=== PATIENT | male | born 1965 | race Caucasian/White ===

== ENCOUNTER 2020-05-15 13:25 | Outpatient (CLI) | payer MEDICARE, SELFPAY ==
--- NOTE | ~2020-05-15 | XR_ITS ---
EXAMINATION: XR chest 2V DATE: 05/15/2020 13:59 INDICATION: Personal history of nicotine dependence. TECHNIQUE: Frontal and lateral views of the chest were obtained. COMPARISON: Chest 2 views 04/18/2017, CT abdomen and pelvis 02/21/2017, chest CT 01/01/2013 FINDINGS: There is a 7 mm nodule in left lower lobe. No pleural effusion or pneumothorax. The heart s ize is normal. IMPRESSION: 1. Chronic 7 mm left lower lobe pulmonary nodule, likely benign. Reviewed, dictated and finalized at location A. RNATIONAL GUEST COORDINATOR
[2020-05-15 19:02] LABS: Add Urine Microscopic? YES; Appearance Urine Clear (Clear); Bilirubin Urine Negative (Negative); Blood Urine Negative (Negative); Color Urine Yellow (Yellow); Glucose Urine UA Negative (Negative); Ketones Urine Trace mg/dL (Negative); Leukocyte Esterase Ur Trace LEU/UL (Negative); Mucus Urine Moderate /lpf; Nitrate Urine Negative (Negative); Protein Urine 1+ mg/dL (Negative); Specific Grav Ur 1.024 (1.001-1.035); Squamous Epithelial Cell Urine Rare /hpf (Few); WBC Urine 0-3 /hpf
[2020-05-15 19:10] LABS: Basophils Absolute Auto 0.1 K/mm3 (0.0-0.1); Basophils Percent Auto 0.9 % (0.2-1.2); Eosinophils Absolute Auto 0.2 K/mm3 (0-0.3); Eosinophils Percent Auto 1.9 % (0-4.4); Hematocrit 51.2 % (42.0-52.0); Hemoglobin 17.4 g/dL (14.0-18.0); Immature Granulocyte Absolute 0.07 K/mm3 (0.00-0.031); Immature Granulocyte Percent A 0.7 % (0-0.5); Lymphocytes Absolute Auto 1.85 K/mm3 (0.9-3.2); Lymphocytes Percent Auto 18.9 % (18.3-44.2); Mean Corpuscular Hemoglobin 30.6 pg (26-34); Monocytes Absolute Auto 0.6 K/mm3 (0.1-0.6); Monocytes Percent Auto 6.3 % (2.6-8.5); Neutrophils Percent Auto 71.3 % (45.5-73.1); Platelet Count Result 242 k/mm3 (150-375); Red Blood Count 5.69 M/mm3 (4.6-6.20); Red Cell Distribution Width 13.8 % (11.5-14.5); White Blood Count 9.8 K/mm3 (4.5-10.0)
[2020-05-15 19:35] LABS: Alanine Aminotransferase 44 U/L (4-50); Albumin Level 4.4 g/dL (3.5-5.1); Alkaline Phosphatase 101 U/L (38-126); Anion Gap 7 mmol/L (8-16); Aspartate Amino Transferase 38 U/L (17-59); Bilirubin,Total 0.8 mg/dL (0.2-1.3); Blood Urea Nitrogen 15 mg/dL (9-20); CRP < 0.5 mg/dL (<1.0); Calcium 9.8 mg/dL (8.4-10.2); Carbon Dioxide 26 mmol/L (22-30); Chloride 105 mmol/L (98-107); Cholesterol 254 mg/dL (0-200); Estimated Glomerular Filt Rate > 60; Glucose 103 mg/dL (75-110); HDL Direct 49 mg/dL; Potassium 4.5 mmol/L (3.4-5.0); Sodium 138 mmol/L (137-145); Triglycerides 282 mg/dL (<150)
[2020-05-15 19:43] LABS: LDL Cholesterol Direct 193 mg/dL
[2020-05-15 19:46] LABS: Free T4 Free Thyroxine 1.24 ng/mL (0.78-2.19); Vitamin D 25 Hydroxy 21.8 ng/mL
[2020-05-15 20:01] LABS: Prostate Specific Antigen 2.8 ng/mL (< OR = 4.0)
[2020-05-15 20:38] LABS: Folic Acid 9.1 ng/mL (2.76->20)
[2020-05-19 07:14] LABS: Triiodothyronine T3 Free 3.5 pg/mL (2.3-4.2)
[2020-05-19 11:01] LABS: T3 Reverse 18 ng/dL (8-25)
[2020-05-20 07:53] LABS: Testosterone Free 79.3 pg/mL (35.0-155.0); Testosterone Total 499 ng/dL (250-1100)
== END 2020-05-15 13:26 | disposition home or self-care (01) ==
PROVIDERS: PCP Family Medicine; Visit Provider Family Medicine
DX: Z12.5 Encounter for screening for malignant neoplasm of prostate (principal); R92.8 Other abnormal and inconclusive findings on diagnostic imaging of breast; Z87.891 Personal history of nicotine dependence; J44.9 Chronic obstructive pulmonary disease, unspecified; Z51.81 Encounter for therapeutic drug level monitoring; Z79.899 Other long term (current) drug therapy; F51.04 Psychophysiologic insomnia; G47.19 Other hypersomnia; R06.00 Dyspnea, unspecified; Z82.41 Family history of sudden cardiac death; Z82.62 Family history of osteoporosis; I10 Essential (primary) hypertension
CPT/HCPCS: 36415; 71046; 80053; 80061; 81001; 82306; 82607; 82746; 84153; 84402; 84403; 84439; 84443; 84481; 84482; 85025; 86140; G0103

== ENCOUNTER 2021-01-25 08:34 | Outpatient (CLI) | payer MEDICARE, SELFPAY ==
--- NOTE | ~2021-01-25 | XR_ITS ---
EXAMINATION: XR knee RT min 4V DATE: 01/25/2021 09:21 INDICATION: Nontraumatic right knee pain TECHNIQUE: Anteroposterior, 2 oblique and crosstable lateral views of the right knee were obtained COMPARISON: None. FINDINGS: Alignment is normal. No fracture. Joint spaces appear normal on nonweightbearing imaging. No joint e ffusion/layering lipohemarthrosis. Scattered atherosclerotic calcific lesion along the arteries in th e proximal right calf. Soft tissues are unremarkable. IMPRESSION: 1. No right knee joint effusion or acute osseous abnormality. Reviewed, dictated and finalized at location A.
--- NOTE | ~2021-01-25 | XR_ITS ---
XR abdomen obstructive series DATE: 01/25/2021 09:21 INDICATION: Gastroenteritis, colitis TECHNIQUE: Supine and upright AP views COMPARISON: 03/02/[address] abdomen pelvis FINDINGS: There is no evidence of bowel obstruction or intraperitoneal free air. The liver and spleen appear prominent. No other visceromegaly is detected. The psoas shadows are intact. The lung bases are clear. Heart size is normal. Included skeletal structures are unremarkable. IMPRESSION: Liver and spleen prominent size No bowel obstruction or free air Reviewed, dictated and finalized at Location A. Reviewed, dictated and finalized at location B.
[2021-01-25 21:03] LABS: Cholesterol 239 mg/dL (0-200); HDL Direct 46 mg/dL; Triglycerides 299 mg/dL (<150)
[2021-01-25 21:14] LABS: LDL Cholesterol Direct 161 mg/dL
[2021-01-25 21:35] LABS: Vitamin D 25 Hydroxy < 12.8 ng/mL
== END 2021-01-25 08:35 | disposition home or self-care (01) ==
PROVIDERS: PCP Family Medicine; Visit Provider Family Medicine
DX: E78.5 Hyperlipidemia, unspecified (principal); R79.89 Other specified abnormal findings of blood chemistry; R31.29 Other microscopic hematuria; Z82.41 Family history of sudden cardiac death; F51.04 Psychophysiologic insomnia; R06.00 Dyspnea, unspecified; G89.29 Other chronic pain; Z87.891 Personal history of nicotine dependence; F41.9 Anxiety disorder, unspecified; I10 Essential (primary) hypertension; J45.909 Unspecified asthma, uncomplicated; J44.9 Chronic obstructive pulmonary disease, unspecified; Z86.69 Personal history of other diseases of the nervous system and sense organs; F32.9 Major depressive disorder, single episode, unspecified; E55.9 Vitamin D deficiency, unspecified
CPT/HCPCS: 36415; 73564; 74019; 80061; 82306

== ENCOUNTER 2021-02-03 10:54 | Outpatient (CLI) | payer MEDICARE, SELFPAY ==
--- NOTE | ~2021-02-03 | MR_ITS ---
EXAMINATION: MR knee RT wo con DATE: 02/03/2021 11:42 INDICATION: Right knee pain. TECHNIQUE: Magnetic resonance imaging (MRI) of the right knee was performed without intravenous contr ast. Sequences included axial PD-weighted FS FSE, coronal PD-weighted FSE and PD-weighted FS FSE, sag ittal PD-weighted FSE, and sagittal T2-weighted FS FSE. COMPARISON: Right knee radiographs 01/25/2021, right knee MRI 09/26/2016 FINDINGS: Medial compartment: There is a complex tear of medial meniscus involving the body and posterior horn. There is shallow pa rtial-thickness cartilage loss of tibial condyle. There is deep partial thickness cartilage loss of f emoral condyle involving the central articular surface. Lateral compartment: Lateral meniscus is normal. There is shallow partial-thickness cartilage loss of tibial condyle media lly. Femoral cartilage is normal. Patellofemoral compartment: There is deep partial thickness cartilage fissuring of patellar lateral facet. There is shallow parti al-thickness cartilage loss of patellar medial facet. There is cartilage surface irregularity of troc hlea. Ligaments and tendons: The anterior and posterior cruciate ligaments are normal. Medial collateral ligament and lateral tony ateral ligament complex are intact. There is mild patellar tendinopathy. Fluid: There is a small knee joint effusion. There is trace fluid in a Ha's cyst. IMPRESSION: 1. Moderate chondrosis of medial and patellofemoral compartments and mild chondrosis of lateral carmen rtment. 2. Tear of medial meniscus. 3. Small knee joint effusion. Reviewed, dictated and finalized at location A. IMPRESSION: 1. Moderate chondrosis of medial and patellofemoral compartments and mild chond rosis of lateral compartment. 2. Tear of medial meniscus. 3. Small knee joint effusion.
== END 2021-02-03 10:55 | disposition home or self-care (01) ==
LOC: ANHIMG 10:58
PROVIDERS: PCP Family Medicine; Visit Provider Family Medicine
DX: M25.561 Pain in right knee (principal); M22.2X1 Patellofemoral disorders, right knee; S83.241A Other tear of medial meniscus, current injury, right knee, initial encounter; M25.461 Effusion, right knee
CPT/HCPCS: 73721

== ENCOUNTER 2021-06-19 13:17 | Outpatient (CLI) | payer MEDICARE, SELFPAY ==
--- NOTE | ~2021-06-19 | XR_ITS ---
EXAMINATION: XR chest 2V DATE: 06/19/2021 13:25 INDICATION: Chronic shortness of breath. TECHNIQUE: Frontal and lateral views of the chest were obtained. COMPARISON: Chest 2 views 05/15/2020, CT abdomen and pelvis 02/21/2017 FINDINGS: The chest demonstrates clear lungs without pneumonia, pleural effusion, or pneumothorax. Th e heart size is normal. IMPRESSION: 1. No acute cardiopulmonary disease. Reviewed, dictated and finalized at location A. GENERAL CAR SUPERVISOR
== END 2021-06-19 13:18 | disposition home or self-care (01) ==
PROVIDERS: PCP Family Medicine; Visit Provider Family Medicine
DX: J44.9 Chronic obstructive pulmonary disease, unspecified (principal); J45.909 Unspecified asthma, uncomplicated
CPT/HCPCS: 71046

== ENCOUNTER 2021-07-19 01:11 | Day surgery (SDC) | payer MEDICARE, SELFPAY ==
[2021-07-13 10:59] VITALS: BMI 28.6
--- NOTE | 2021-07-13 11:29 | PC.NURSE ---
Report to the Outpatient Waiting Room, entrance under the green pavilion located off [facility], at time __11:00AM on date __07/19/21 . OR Time: __1:00PM . - You and your visitor will be asked a series of questions to screen for COVID 19 for your protection. - A mask is required within the hospital. Preoperative COVID Testing Requirements: No COVID Test needed if: (proof is required; if not received patient will have Rapid Test prior to entry) - Patient has received COVID Vaccine at least 14 days prior to procedure date or - Patient has positive COVID test result within last 90 days of surgery date. COVID Test needed if above criteria is not met If not COVID vaccinated a COVID test must be conducted within 72 hours of surgery and patient is asked to isolate self from time of testing until procedure. You will go to the [facility] for your COVID testing. The [facility] site is located at the corner of [address] [facility]. You will only be called if COVID results are positive and your surgeon may reschedule your elective surgery date. Patients may have clear liquids (water, carbonated beverages, clear teas, apple juice) until 3 hours prior to surgery with a maximum of 20 ounces. - No food from midnight until time of surgery - Infants may have breast milk until 4 hours before surgery, formula 6 hours prior to surgery. - Children will be allowed to drink immediately following surgery. If applicable, please bring a bottle or sippy cup to assist with drinking. Juice, water, soda, and popsicles are readily available. For infants on formula, please bring formula the day of surgery. Pacifiers are allowed. Take the following medications with a SIP of water the morning of surgery: ___AMLODIPINE, BUPROPION, HYDROCODONE, NEBULIZER, LUNG INHALER & NASAL INHALER Medications to discontinue per physician NONE Date to take last dose Please no make-up, nail pashto, hairspray, perfume, deodorant, or body powder the day of surgery. No jewelry (including any body piercings) or valuables the day of surgery, leave them at home. Please take a shower or bath the night before, or the morning of, surgery with an antibacterial soap. Wear comfortable, loose fitting clothing. Children are encouraged to wear pajamas. - Jewelry must be removed prior to entering the operating room. Rings and piercings that are not removed may be cut off. - The hospital will not accept responsibility for valuables. - Please leave all valuables, including medications, at home the day of surgery. If you are going home after surgery, a licensed driver education instructor must drive you home. - NO public transportation without another adult. - We recommend that an adult stay with you for 24 hours following discharge. - We also recommend that you do not drive, make important decision, drink alcoholic beverages, or take any drugs that were not prescribed by your health care provider for at least 24 hours after your discharge time. For Pediatric surgeries, we recommend two adults accompany the child home (only one inside the building at this time). One visitor will be allowed to accompany the patient into the hospital. Patients visitor will be instructed to remain with patient at all times or leave the building. We will allow the visitor to come back to the postoperative area when patient is ready. Follow any additional instructions given to you from your surgeon. Telephone instructions given to __PATIENT and asked if any additional questions and then verbalized understanding. Patient advised to call surgeon office or pre surgery nurse liaison [phone] if any additional questions.
[2021-07-19] VITALS (8 sets, daily range): BP systolic 122–163; BP diastolic 72–98; PULSE 73–97; RESP 14–20; TEMP 36.6–36.9; O2SAT 97–100
--- NOTE | 2021-07-19 07:09 | WPDHPUPDATE1 ---
History and Physical Update Update Date/Time: 07/19/21 07:09 History and Physical has been reviewed, including an updated exam of the patient. There are NO changes in the patient's condition. Risks, benefits, and alternatives have been discussed and questions answered. Patient agrees to proceed with procedure.
[2021-07-19] MEDS: LACTATED RINGERS 1,000 ML 30 ML IV CONT (11:30)
--- NOTE | 2021-07-19 11:31 | WPDANESEPPF ---
Anes - Initial Pre Proc Eval Procedure: Operation Date: 07/19/21 13:00 Proposed Procedures p Right Knee Arthroscopy, Debride Meniscus, Synovectomy, Chondroplasty - Jordy Morelos MD Date/Time: 07/19/21 11:31 Surgeon: Jordy Morelos MD Pre Op Diagnosis: right knee pain,meniscus tear,condromalacia Patient Data Age: 56 Gender: M Height: 1.75 m Weight: 88 kg Allergies Allergy/AdvReac Type Severity Reaction Status Date / Time No Known Allergies Allergy Mild Verified 07/13/21 10:47 Home Medications Medication Instructions Recorded Confirmed Type hydrocodone 7.5 mg-acetaminophen 1 tablet PO Q6H PRN 01/25/21 07/13/21 History 325 mg tablet albuterol sulfate 0.63 mg/3 mL 0.63 mg INHALATION Q4-6H PRN #90 ml 05/04/21 07/13/21 Rx solution for nebulization albuterol sulfate 90 mcg/actuation 1 inh INHALATION Q4H PRN #18 g 06/06/21 07/13/21 Rx aerosol inhaler fluticasone propionate 230 2 puff INHALATION BID #12 g 06/07/21 07/13/21 Rx mcg-salmeterol 21 mcg/actuation HFA inhaler zolpidem 10 mg tablet 10 mg PO .hs PRN #30 tablet 06/12/21 07/13/21 Rx sildenafil 50 mg tablet 50 mg PO DAILY PRN #30 tablet 06/22/21 07/13/21 Rx bupropion HCl 150 mg 24 hr tablet, 150 mg PO QAM #90 tablet 06/29/21 07/13/21 Rx extended release varenicline 1 mg tablet 1 mg PO BID #56 tablet 07/02/21 07/13/21 Rx fexofenadine 60 mg-pseudoephedrine 1 tablet PO Q12H PRN #20 tablet 07/05/21 07/13/21 Rx ER 120 mg tablet,ext.release,12 hr atorvastatin 10 mg tablet 10 mg PO DAILY #90 tablet 07/06/21 07/13/21 Rx amlodipine 10 mg PO QAM 07/13/21 07/13/21 History diclofenac sodium 50 mg PO BID 07/13/21 07/13/21 History fluticasone propionate [Flonase 2 spray INTRANASAL BID 07/13/21 07/13/21 History Allergy Relief] Patient hx anesthesia problems: none Family hx anesthesia problems: none Results Review: All pre-operative results and documents have been reviewed as part of the pre-operative evaluation. [facility] Past Medical History Medical History Anxiety Arthritis Asthma Claustrophobia COPD (chronic obstructive pulmonary disease) Degenerative arthritis of right knee Depression Dizziness H/O migraine Hemorrhoids Hernia Hypertension Perforated sigmoid colon Sleep disorder SOB (shortness of breath) on exertion Urinary frequency Urinary hesitancy Wheezing Surgical History Surgical History H/O knee surgery H/O shoulder surgery History of intestinal surgery History of tonsillectomy Family History Family History Mother Acute myocardial infarction Family history of chronic obstructive pulmonary disease Father Malignant neoplasm of prostate Other Arthritis Asthma Depression HLD (hyperlipidemia) Heart disease Hypertension Social History Social History Smoking packs per day: 3 Smoking cigarettes per day: 60.0 Years smoked: 42 Smoking pack-years: 126.00 Smoking status: Current every day smoker Tobacco type: cigarettes Additional smoking assessment comments: 1/2 PACK/DAY RECENTLY-TRYING TO QUIT Alcohol intake: current Drinks per week: 21 Substance use: former Substance use type: crack/cocaine Other substance usage details: MEDICAL MARIJUANA CURRENTLY, QUIT COCAINE 8-10 YRS AGO Living arrangements: alone Additional occupation/education comments: disabled Gender identity (if verbalized by the patient): Male Spiritual care concerns: No Anes - Eval Final PreProcedure Day of Procedure 07/19/21 11:31 Patient weight: overweight Heart: regular rate and rhythm Lungs: clear to auscultation Airway: Mallampati scale class II and special considerations poor dentition Neurological: alert and oriented Last oral intake: >/= 8 hours ASA classification: III Emergen
--- NOTE | 2021-07-19 11:52 | ECG_ITS ---
Measurements Intervals Childs Rate: 82 P: 51 [place]: 150 QRS: 50 QRSD: 88 T: 83 QT: 356 QTc: 417 Interpretive Statements SINUS RHYTHM LOW VOLTAGE EKG NO PREVIOUS ECG AVAILABLE FOR COMPARISON Electronically Signed On 07-19-2021 18:56:46 CDT by Ivonne Matamoros M.D.
[2021-07-19] MEDS: KETOROLAC 15 MG/ML VIAL (*BKC) IV PUSH (12:00)
[2021-07-19] MEDS: ACETAMINOPHEN 500 MG TABLET 1000 MG PO (12:00)
[2021-07-19] MEDS: MIDAZOLAM HCL (*CRX) 2 MG/2 ML VIAL IV PUSH (12:15)
[2021-07-19] MEDS: ceFAZolin 2 GM/D5W 50 ML 2 GM/50 ML BAG IVPB (12:37)
[2021-07-19] MEDS: BUPIVACAINE/EPINEPHRINE 0.25% 50 ML VIAL 10 ML INFILTRATE (13:23)
[2021-07-19] MEDS: BUPIVACAINE HCL 0.5% PF 30 ML VIAL 10 ML INFILTRATE (13:24)
--- NOTE | 2021-07-19 13:50 | P.OP_ITS ---
Procedure Note - Detailed Date of Procedure 07/19/21 Pre-op Diagnosis right knee pain,meniscus tear,condromalacia Post-op Diagnosis Same Procedure Performed Right knee arthroscopy with debridement, partial medial meniscectomy, synovectomy and chondroplasty of patellofemoral and medial compartments. Surgeon Jordy Morelos MD Anesthesia General Indications 56-year-old gentleman with right knee pain with weight-bearing and daily activity. MRI demonstrates medial meniscus tear and chondromalacia as well synovitis. He has failed conservative treatment cortisone injection, physical therapy, home exercises, bracing and activity modification. Presents now for operative treatment. Findings Right knee complex tear of the posterior horn medial meniscus with meniscal fragments in the medial compartment. Grade 4 chondromalacia of the medial femoral condyle 3 cm anterior to posterior and 2 cm medial to lateral. Grade 4 chondromalacia of the patella ridge articular surface grade 2 chondromalacia femoral trochlea. Grade 1 chondromalacia lateral femoral condyle. Lateral meniscus intact. Extensive synovitis involving the medial and lateral gutters with the medial and lateral plica, anterior fat pad and anterior compartment. ACL intact. Description of Procedure Informed consent given by patient. Operative extremity marked in preoperative holding area. Patient received intravenous antibiotics. Patient brought to operating room and underwent general anesthetic by anesthesia team. Positioned supine on operating room table. Right leg placed into a posterior thigh leg ley. Foot of the table dropped to 90? and left leg padded out of the field. Time-out performed confirming patient, site of surgery and plan. Right knee prepped and draped in usual sterile surgical fashion using ChloraPrep skin solution. Previous knee arthroscopy incisions utilized. Standard arthroscopic portals made by using a 11 blade knife for the anterior lateral portal 1st. Capsule penetrated bluntly. Camera and inflow started. The operative findings noted. Intra-articular visualization used to position the anterior medial portal using 22 gauge spinal needle. A 11 blade knife used for the skin and blunt pene tration of the capsule. 4.7 millimeter arthroscopic shaver introduced and partial medial meniscectomy of the loose and torn portion performed. Edge of meniscus completed with arthroscopic Wand. Arthroscopic Wand used to perform chondroplasty of the patellofemoral articulation and the medial femoral condyle. Shaver reintroduced and an extensive synovectomy performed of the anterior fat pad and extensive synovium as well as medial and lateral plica. Bleeding points coagulated with Wand. Knee inspected, no loose pieces noted. 1 liter of irrigant infused and suction out. Arthroscopic cannulas removed. Skin closed with 4 nylon interrupted suture. Local anesthetic with 0.25% Marcaine. Sterile dressing applied. Patient awoken from anesthesia, extubated and taken to recovery room in stable condition. All sponge needle and instrument counts correct at the end of the case. Estimated Blood Loss 10 Drains No Packing No Pathology None sent Complications None Condition Stable Disposition PACU
[2021-07-19] MEDS: oxyCODONE HCL (*CRX) 5 MG TAB IR PO (14:47)
== END 2021-07-19 15:31 | disposition home or self-care (01) ==
PROVIDERS: PCP Family Medicine; Visit Provider Orthopaedic Surgery
PROC: (CPT 29870; principal; 2021-07-19 13:00)
DX: M22.41 Chondromalacia patellae, right knee (principal); M23.221 Derangement of posterior horn of medial meniscus due to old tear or injury, right knee; M65.861 Other synovitis and tenosynovitis, right lower leg; M25.561 Pain in right knee; J44.9 Chronic obstructive pulmonary disease, unspecified; K46.9 Unspecified abdominal hernia without obstruction or gangrene; G47.9 Sleep disorder, unspecified; F17.210 Nicotine dependence, cigarettes, uncomplicated; M19.90 Unspecified osteoarthritis, unspecified site; F12.90 Cannabis use, unspecified, uncomplicated; Z79.51 Long term (current) use of inhaled steroids; J45.909 Unspecified asthma, uncomplicated; F41.8 Other specified anxiety disorders
CPT/HCPCS: 29876; 29881; 93005; A9270; J0690; J1100; J1885; J2250; J2405; J2704; J3010; J7120

== ENCOUNTER 2021-07-30 13:02 | Outpatient (CLI) | payer MEDICARE, SELFPAY ==
--- NOTE | ~2021-07-30 | XR_ITS ---
EXAMINATION: XR knee RT 3V DATE: 07/30/2021 13:36 INDICATION: Right knee pain TECHNIQUE: Anteroposterior, sunrise and lateral views of the right knee were obtained COMPARISON: 01/25/2021 FINDINGS: Alignment is normal. No fracture. Joint spaces appear normal on nonweightbearing imaging. Tiny nimisha nal osteophytes in all 3 compartments consistent with at least mild osteoarthritis. Heterotopic ossif ication along the medial margin of the patella which could represent sequela of chronic injury to the medial patellofemoral retinaculum There is increased density both at the suprapatellar pouch as well as projecting over Hoffa's fat pad which could represent either small to moderate-sized joint effusi on and/or synovitis. Soft tissues are otherwise unremarkable. IMPRESSION: 1. Small to moderate-sized right knee joint effusion and/or synovitis. No acute osseous abnormality. Reviewed, dictated and finalized at location A.
== END 2021-07-30 13:03 | disposition home or self-care (01) ==
LOC: ANHBWCIMG 13:04
PROVIDERS: PCP Family Medicine; Visit Provider Orthopaedic Surgery
DX: M25.561 Pain in right knee (principal); M25.461 Effusion, right knee
CPT/HCPCS: 73562

== ENCOUNTER 2021-08-29 12:55 | Outpatient (CLI) | payer MEDICARE, SELFPAY ==
[2021-08-29 19:28] LABS: Basophils Percent Auto 0.4 % (0.2-1.2); Eosinophils Absolute Auto 0.2 K/mm3 (0-0.3); Eosinophils Percent Auto 1.6 % (0-4.4); Hematocrit 51.2 % (42.0-52.0); Hemoglobin 16.7 g/dL (14.0-18.0); Immature Granulocyte Absolute 0.05 K/mm3 (0.00-0.031); Immature Granulocyte Percent A 0.5 % (0-0.5); Lymphocytes Absolute Auto 1.59 K/mm3 (0.9-3.2); Mean Corpuscular HGB Conc 32.6 g/dl (32-36); Mean Corpuscular Hemoglobin 30.4 pg (26-34); Mean Corpuscular Volume 93.3 fl (80-100); Mean Platelet Volume 10.4 fl (7.4-10.4); Monocytes Absolute Auto 0.7 K/mm3 (0.1-0.6); Monocytes Percent Auto 7.7 % (2.6-8.5); Neutrophils Absolute Auto 6.8 K/mm3 (1.3-6.7); Neutrophils Percent Auto 72.8 % (45.5-73.1); Platelet Count Result 159 k/mm3 (150-375); Red Blood Count 5.49 M/mm3 (4.6-6.20); Red Cell Distribution Width 13.6 % (11.5-14.5); White Blood Count 9.3 K/mm3 (4.5-10.0)
== END 2021-08-29 12:56 | disposition home or self-care (01) ==
PROVIDERS: PCP Family Medicine; Visit Provider Physician Assistant
DX: J44.9 Chronic obstructive pulmonary disease, unspecified (principal); J45.909 Unspecified asthma, uncomplicated
CPT/HCPCS: 36415; 85025

== ENCOUNTER 2021-10-23 11:24 | Outpatient (CLI) | payer MEDICARE, SELFPAY ==
[2021-10-23 21:31] LABS: Hepatitis B Surface Antigen Negative (Negative)
[2021-10-23 21:39] LABS: HAV RESULT Negative (Negative); Hepatitis B Core IgM Result Negative (Negative)
[2021-10-23 21:56] LABS: Hepatitis C Virus Antibody Reactive (Negative)
[2021-10-27 15:09] LABS: Hepatitis C RNA, Quant PCR <15 IU/mL
== END 2021-10-23 11:25 | disposition home or self-care (01) ==
PROVIDERS: PCP Family Medicine; Visit Provider Family Medicine
DX: B19.20 Unspecified viral hepatitis C without hepatic coma (principal)
CPT/HCPCS: 36415; 80074; 87522

== ENCOUNTER 2022-02-25 12:17 | Outpatient (CLI) | payer MEDICARE, SELFPAY ==
--- NOTE | ~2022-02-25 | XR_ITS ---
XR shoulder RT min 2V DATE: 02/25/2022 13:56 INDICATION: Chronic right shoulder pain, worse over the past 6 months. No known injury. TECHNIQUE: 4 views COMPARISON: None FINDINGS: There is mild glenohumeral osteoarthritis. No fracture or dislocation. No periosteal reaction or bone destruction or abnormal soft tissue calcif ication. Degenerative spurring of the thoracic spine.. IMPRESSION: Mild glenohumeral osteoarthritis Degenerative spurring of the thoracic spine Reviewed, dictated and finalized at location A. SPOOLER
[2022-02-25 19:05] LABS: Alanine Aminotransferase 18 U/L (6-50); Albumin Level 4.7 g/dL (3.5-5.1); Alkaline Phosphatase 89 U/L (38-126); Anion Gap 11 mmol/L (8-16); Aspartate Amino Transferase 27 U/L (17-59); Bilirubin,Total 0.6 mg/dL (0.2-1.3); Blood Urea Nitrogen 11 mg/dL (9-20); Calcium 9.4 mg/dL (8.4-10.2); Carbon Dioxide 25 mmol/L (22-30); Chloride 104 mmol/L (98-107); Cholesterol 296 mg/dL (0-200); Estimated Glomerular Filt Rate > 60; Glucose 77 mg/dL (65-110); HDL Direct 65 mg/dL; Potassium 4.2 mmol/L (3.4-5.0); Sodium 140 mmol/L (137-145); Triglycerides 242 mg/dL (<150)
[2022-02-25 19:08] LABS: Hemoglobin A1C 5.1 % (<5.7)
[2022-02-25 19:18] LABS: LDL Cholesterol Direct 183 mg/dL
[2022-02-25 19:36] LABS: Prostate Specific Antigen 2.9 ng/mL (< OR = 4.0)
[2022-02-25 19:38] LABS: Vitamin D 25 Hydroxy 14.6 ng/mL
[2022-03-04 09:02] LABS: ANA Cascade Screen Positive (Negative)
[2022-03-08 15:20] LABS: Chromatin (Nucleosomal) Ab <1.0; Sm Antibody <1.0; Sm/RNP Antibody <1.0
== END 2022-02-25 12:18 | disposition home or self-care (01) ==
PROVIDERS: PCP Family Medicine; Visit Provider Family Medicine
DX: S49.91XA Unspecified injury of right shoulder and upper arm, initial encounter (principal); X58.XXXA Exposure to other specified factors, initial encounter; F32.9 Major depressive disorder, single episode, unspecified; F41.9 Anxiety disorder, unspecified; G47.9 Sleep disorder, unspecified; I10 Essential (primary) hypertension; J44.9 Chronic obstructive pulmonary disease, unspecified; N52.9 Male erectile dysfunction, unspecified; R79.89 Other specified abnormal findings of blood chemistry; Z72.0 Tobacco use; R63.1 Polydipsia; F90.9 Attention-deficit hyperactivity disorder, unspecified type; Z12.5 Encounter for screening for malignant neoplasm of prostate; E55.9 Vitamin D deficiency, unspecified; M19.011 Primary osteoarthritis, right shoulder
CPT/HCPCS: 36415; 73030; 80053; 80061; 82306; 83036; 84153; 84443; 86038; G0103

== ENCOUNTER 2022-06-11 14:02 | Outpatient (CLI) | payer MEDICARE, SELFPAY ==
--- NOTE | ~2022-06-11 | XR_ITS ---
EXAM: XR foot LT standing 2V, XR foot RT standing 2V DATE: 06/11/2022 14:54 HISTORY: M19.90 - Unspecified osteoarthritis, GENERAL JOINT PAIN . COMPARISON: None available. FINDINGS: Normal mineralization. No fracture or dislocation. No lytic or blastic lesion. Mild loss o f the longitudinal arch bilaterally. Achilles and plantar enthesopathy in the right foot. Mild bilate ral hallux valgus. Moderate joint space narrowing subchondral sclerosis, and possible erosions (gullw ing deformity) in the DIP joint of the left second toe. Other degenerative changes are present in the feet, typical of mild osteoarthritis, most notably in the bilateral first interphalangeal joints and MTP joints No erosion or periosteal change. Soft tissues within normal limits. IMPRESSION: Mild bilateral hallux valgus and pes planus. Moderate arthritic changes in the left secon d DIP joint may represent osteoarthritis, post traumatic arthropathy, or psoriatic arthritis, in a ba ckground of more typical of mild polyarticular osteoarthritic changes. Reviewed, dictated and finalized at location K. ETING INFORMATION ANALYST IMPRESSION: Mild bilateral hallux valgus and pes planus. Moderate arthritic césar nges in the left second DIP joint may represent osteoarthritis, post traumatic arthropathy, or psoriatic arthritis, in a background of more typical of mild po lyarticular osteoarthritic changes.
--- NOTE | ~2022-06-11 | XR_ITS ---
XR sacroiliac joints min 3V 06/11/2022 14:54 Indication: Lower lumbar spondylosis Procedure: 3 views sacroiliac joints Comparison: No prior studies for comparison. Findings: Sacroiliac joints are symmetric. No significant degenerative change, ankylosis or erosive c hange. Sacral foramen are symmetric. Mild symmetric osteoarthritis of the hips. Impression: 1: No significant abnormality of the sacroiliac joints. Reviewed, dictated and finalized at location L. RT FURNACE HELPER Impression: 1: No significant abnormality of the sacroiliac joints.
--- NOTE | ~2022-06-11 | XR_ITS ---
Bilateral Hands Technique: Bilateral PA, oblique, and lateral views, and ball-catcher's view were obtained. Clinical History: Osteoarthritis Findings: No acute fracture or dislocation is seen. Osseous alignment is anatomic. Joint spaces are p reserved. Soft tissues are unremarkable. Impression: Unremarkable bilateral hand radiographs. Reviewed, dictated and finalized at location . ANY MINER BLASTING Impression: Unremarkable bilateral hand radiographs.
[2022-06-11 17:00] LABS: Rheumatoid Factor 12.6 IU/ML (<12)
[2022-06-13 21:00] LABS: Anti Cyclic Citrullinated Pept <16 Units (<20)
== END 2022-06-11 14:03 | disposition home or self-care (01) ==
PROVIDERS: PCP Family Medicine; Visit Provider Internal Medicine
DX: M19.90 Unspecified osteoarthritis, unspecified site (principal); R76.8 Other specified abnormal immunological findings in serum; M47.812 Spondylosis without myelopathy or radiculopathy, cervical region; M47.816 Spondylosis without myelopathy or radiculopathy, lumbar region; M20.12 Hallux valgus (acquired), left foot; M20.11 Hallux valgus (acquired), right foot; M21.42 Flat foot [pes planus] (acquired), left foot; M21.41 Flat foot [pes planus] (acquired), right foot
CPT/HCPCS: 36415; 72202; 73130; 73620; 86200; 86430

== ENCOUNTER → 2022-07-19 10:02 | Outpatient (CLI) | payer MEDICARE, SELFPAY ==
--- NOTE | ~2022-07-19 | MR_ITS ---
EXAMINATION: MR hand RT wo/w con, MR hand LT wo/w con DATE: 07/19/2022 11:28 INDICATION: Worsening bilateral hand pain and limited range of motion, right greater than left TECHNIQUE: 1. Magnetic resonance imaging (MRI) of the left hand was performed without and with 15 mL Multihance intravenous contrast to include the metacarpals and digits. Sequences included axial, sagittal and co vinod T1-weighted FSE and fluid sensitive FSE STIR and postcontrast axial and sagittal T1-weighted FS FSE. 2. Magnetic resonance imaging (MRI) of the right hand was performed without and with 15 mL Multihance intravenous contrast to include the metacarpals and digits and utilizing the same contrast bolus. Se quences included axial, sagittal and coronal T1-weighted FSE and fluid sensitive FSE STIR and postcon trast axial and sagittal T1-weighted FS FSE. COMPARISON: Bilateral hand radiographs dated 06/11/2022 FINDINGS: Left hand: Bone alignment is normal. Normal bone marrow signal with no fracture or pathologic marrow replacing process. Relatively symmetric pattern of mild osteoarthritis at the first carpometacarpal, metacarpophalangeal, first interphalangeal and a few additional distal interphalangeal joints. Mild t hickening and minimal increased signal at the radial ulnar collateral ligament complexes of the secon d metacarpophalangeal joint and to lesser degree at the radial collateral ligament complex at the thi rd and fourth metacarpophalangeal joints. There is mild edema-like marrow signal change at the underl gabriella dorsal/radial side of the head of the second metacarpal. No joint effusion. The remaining collat eral ligament complex are normal. The visualized portion of the flexor and extensor tendons are with no tenosynovitis. Intrinsic musculature of the hand is normal. Right hand: Bone alignment is normal. No fracture or pathologic marrow replacing process. There is T2 hyperintens e enhancing synovitis at the recess of the right second metacarpophalangeal joint. Associated mild th ickening, increased signal and enhancement of the radial and ulnar collateral ligament complexes at t he second metacarpophalangeal joint. More subtle mild increased signal and enhancement at the radial collateral ligament complex of the third metacarpophalangeal joint. No cortical erosions. Mild osteoa rthritis characterized by mild nonuniform joint space narrowing and small marginal osteophytes at the first carpometacarpal, first metacarpophalangeal, first interphalangeal and a few additional distal interphalangeal joints. The remaining collateral ligament complex at the metacarpophalangeal and inte rphalangeal joints are normal. The visualized portions of the flexor and extensor tendons are normal with no tenosynovitis. Intrinsic musculature of the hand is normal. IMPRESSION: 1. Enhancing synovitis at the right second metacarpophalangeal joint consistent with nonspecific arth ritis with inflammatory component. 2. Thickening, mild increased signal and enhancement involving the radial and ulnar collateral ligame nt complex at the bilateral second metacarpophalangeal joints at the radial side of the right third a nd left third and fourth metacarpophalangeal joints. Given the relatively symmetric distribution woul d favor an inflammatory enthesopathy over trauma. Differential would include arthritis, reactive arth ritis, lupus or crystalline arthropathy such as gout. 3. Mild polyarticular osteoarthritis with typical distribution at the bilateral thumbs and a few dist al interphalangeal joints. Reviewed, dictated and finalized at location A. IMPRESSION: 1. Enhancing synovitis at the right second metacarpophalangeal joint consistent with nonspecific arthritis with inflammatory component. 2. Thickening, mil
== END ==
PROVIDERS: Visit Provider Internal Medicine
DX: M19.041 Primary osteoarthritis, right hand (principal); M19.042 Primary osteoarthritis, left hand
CPT/HCPCS: 73220; A9577

== ENCOUNTER 2022-08-02 12:02 | Emergency (ER) | payer MEDICARE, SELFPAY ==
--- NOTE | ~2022-08-02 | XR_ITS ---
XR hand LT min 3V 08/02/2022 12:59 INDICATION: Left hand pain PROCEDURE: 3 views left hand COMPARISON: 06/11/2022 FINDINGS: Fracture, dislocation or subluxation is not identified. Osteopenia. The soft tissues appear within normal limits. No foreign bodies are identified. IMPRESSION: 1: NO ACUTE BONE OR JOINT ABNORMALITY IDENTIFIED. Reviewed, dictated and finalized at location A.
[2022-08-02 12:09] VITALS: BP 141/87; PULSE 98; RESP 20; TEMP 36.6; O2SAT 98
--- NOTE | 2022-08-02 12:46 | ED.GENADULT ---
HPI - General Adult General Chief complaint: Extremity Injury, Upper Stated complaint: left hand injury Time Seen by Provider: 08/02/22 12:35 Source: patient, RN notes reviewed and old records reviewed Mode of arrival: ambulatory Limitations: no limitations History of Present Illness HPI narrative: 57 year old male presents to express care with complaints of pain to his left hand 4 days ago when he was opening a window and rail snapped and he felt a pop to his left hand. Patient voices discomfort to dorsal left hand along tissue of thumb and first metacarpal region with no selling redness or bruising noted, reports increased pain with movement of hand. 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 MD complaint: pain left hand Onset (ago): day(s) (4) Severity scale (1-10): 9 Pain Consistency: constant Exacerbating factors: movement Treatments prior to arrival: other (takes daily pain medication) Related Data Home Medications Medication Instructions Recorded Confirmed diclofenac sodium 50 mg 50 mg PO BID 07/13/21 08/02/22 tablet,delayed release albuterol sulfate 90 mcg/actuation 90 mcg inhalation Q4-6H 08/02/22 08/02/22 aerosol inhaler Allergies Allergy/AdvReac Type Severity Reaction Status Date / Time No Known Allergies Allergy Mild Verified 08/02/22 12:11 Review of Systems Review of Systems: CONSTITUTIONAL: Denies fever, chills, or sweats. EYES: Denies visual changes, redness, or discharge. ENT: Denies rhinorrhea, congestion, sore throat, or otalgia. CARDIOVASCULAR: Denies chest pain, palpitations, or edema. RESPIRATORY: Denies cough or dyspnea. GASTROINTESTINAL: Denies abdominal pain, nausea, vomiting, or diarrhea. GENITOURINARY: Denies dysuria or hematuria. SKIN: Denies rash or itching. MUSCULOSKELETAL: back pain,chronic joint pain, or myalgia, pain to left dorsal hand along thumb and 1st metacarpal area NEUROLOGIC: Denies headache, numbness, or weakness. PSYCHIATRIC: Reports anxiety or depression. All systems reviewed & are unremarkable except as noted in HPI and below PMFSH Past Medical History Medical History STEPHANIE positive Anxiety Arthritis Asthma Claustrophobia COPD (chronic obstructive pulmonary disease) Degenerative arthritis of right knee Degenerative joint disease of cervical and lumbar spine Depression Dizziness Encounter for postoperative care H/O migraine Hemorrhoids Hernia Hypertension Inflammatory arthritis Left hip pain Perforated sigmoid colon Sleep disorder SOB (shortness of breath) on exertion Urinary frequency Urinary hesitancy Wheezing Surgical History Surgical History H/O knee surgery H/O shoulder surgery History of intestinal surgery History of tonsillectomy Family History Family History Mother Acute myocardial infarction Family history of chronic obstructive pulmonary disease Father Malignant neoplasm of prostate Other Arthritis Asthma Depression HLD (hyperlipidemia) Heart disease Hypertension Social History Social History Smoking packs per day: 0.5 Smoking cigarettes per day: 10.0 Years smoked: 42 Smoking pack-years: 21.00 Smoking status: Current every day smoker (0.5 ppd now ) Tobacco type: cigarettes Additional smoking assessment comments: 1/2 PACK/DAY RECENTLY-TRYING TO QUIT Alcohol intake: current Drinks per week: 21 Substance use: former Substance use type: crack/cocaine and opiates Other substance usage details: MEDICAL MARIJUANA CURRENTLY, QUIT COCAINE 8-10 YRS AGO Last use: opiates for pain control Lack of Transportation: YES Lack of Food: Sometimes True Current Housing: I
== END 2022-08-02 13:39 | disposition home or self-care (01) ==
PROVIDERS: Emergency Provider Registered Nurse; PCP Family Medicine
DX: M79.642 Pain in left hand (principal); F17.210 Nicotine dependence, cigarettes, uncomplicated; F12.90 Cannabis use, unspecified, uncomplicated; J44.9 Chronic obstructive pulmonary disease, unspecified; M17.11 Unilateral primary osteoarthritis, right knee; M47.812 Spondylosis without myelopathy or radiculopathy, cervical region; M47.816 Spondylosis without myelopathy or radiculopathy, lumbar region; I10 Essential (primary) hypertension; F41.9 Anxiety disorder, unspecified; F32.A Depression, unspecified
CPT/HCPCS: 73130; 99213; G0463

== ENCOUNTER 2022-09-30 09:20 | Outpatient (CLI) | payer MEDICARE, SELFPAY ==
--- NOTE | 2022-10-06 15:11 | WPDPFTINT ---
PFT Procedure Performed PFT Procedure Performed Spirometry with Pre/Post Bronchodilator Plethysmography (Lung Vol) Diffusing Cap (DLCO) Flow Vol Loop PFT Interpretation DOS: 09/30/2022 REQUESTING: Chantell Whiteside PA-C REASON FOR TESTING: COPD PULMONARY FUNCTION TESTS Results are reliable and reproducible. Spirometry: pre bronchodilator FEV1 is 3.16 L, 87% predicted, normal. Pre bronchodilator FVC is 4.75 L, 102% predicted, normal. FEV1 / FVC ratio is 66%, decreased, consistent with airflow obstruction. After bronchodilator the FEV1 is 3.34 L, 92%, a 6% increase. After bronchodilator the FVC is 4.83 L, 104% predicted, 2% increase. These are not statistically significant increases. Lung volumes: Total lung capacity is 10.59 L, 157% predicted, moderate hyperinflation. Residual volume is 4.68 L, 225%, severe air trapping. RV/TLC is increased 44%. This also is consistent with air trapping. Airway resistance 2.31, 189% predicted, normal. Diffusion: DLCO 27.2, 93% predicted. DLCO / VA is 3.36, 75%, within the normal range. Flow volume loop: There is mild coving of the expiratory limb consistent with airflow obstruction. IMPRESSION: This shows a mild obstructive ventilatory impairment with insignificant response to bronchodilator, moderate air trapping with severe hyperinflation, normal diffusion. Lack of response to bronchodilator should not preclude use if clinically indicated. The patient had a PFT in 2009. The interpretation was Mild obstructive ventilatory defect with acute bronchodilator response.? Normal DLCO. Selma Starkey MD
--- NOTE | 2022-10-06 15:21 | WPDSIXMINUTE ---
Six Minute Walk Procedure Procedure Performed Pulmonary Stress Test (6 min walk) Six Minute Walk Six Minute Walk: DATE OF SERVICE: 09/30/2022 REQUESTING: Chantell Whiteside PA-C REASON FOR TESTING: COPD SIX MINUTE WALK This test was conducted per ATS guidelines. The initial saturation was 98%, and initial heart rate was 72 bpm. The patient walked without stopping, completing 800 ft/ 243.8 m. He walked using a cane. He had shortness of breath.. The saturation at the end of testing was 96%, and the heart rate was 85 beats per minute. IMPRESSION: This is a normal study. The patient did not require supplemental oxygen with exertion. Selma Starkey MD
== END 2022-09-30 09:21 | disposition home or self-care (01) ==
LOC: ANHPFT 09:21
PROVIDERS: PCP Family Medicine; Visit Provider Internal Medicine Critical Care Medicine
DX: J44.9 Chronic obstructive pulmonary disease, unspecified (principal); R94.2 Abnormal results of pulmonary function studies
CPT/HCPCS: 94060; 94618; 94726; 94729

== ENCOUNTER 2022-09-30 10:31 | Outpatient (CLI) | payer MEDICARE, SELFPAY ==
--- NOTE | ~2022-09-30 | CT_ITS ---
CT Scan of the Chest without Contrast: Clinical Indication: Lung cancer screening, smoking history Technique: Contiguous sections were acquired throughout the chest without intravenous contrast. Dose reduction technique was used on this scan by utilizing automated exposure control and iterative recon struction technique. The dose-length product (DLP) was 153.67 mGy-cm. COMPARISON: 01/01/2013 Findings: There is no evidence of any significant mediastinal, hilar or axillary lymphadenopathy. Atherosclerot ic calcifications of the aorta and coronary arteries are present. There is no evidence of pleural or pericardial effusion. 8mm left lower lobe pulmonary nodules present, minimally increased since 2013 (axial image 85). Images through the upper abdomen reveal no abnormalities. Impression: Lung RADS 2: Benign appearance. 12 month follow-up screening CT advised. Reviewed, dictated and finalized at location . Impression: Lung RADS 2: Benign appearance. 12 month follow-up screening CT advised.
== END 2022-09-30 10:32 | disposition home or self-care (01) ==
PROVIDERS: PCP Family Medicine; Visit Provider Physician Assistant
DX: Z12.2 Encounter for screening for malignant neoplasm of respiratory organs (principal); F17.210 Nicotine dependence, cigarettes, uncomplicated
CPT/HCPCS: 71271; 94060; 94618; 94726; 94729

== ENCOUNTER 2022-10-21 10:15 | Outpatient (CLI) | payer MEDICARE, SELFPAY ==
[2022-10-21 18:36] LABS: Hematocrit 51.7 % (42.0-52.0); Hemoglobin 16.8 g/dL (14.0-18.0); Mean Corpuscular HGB Conc 32.5 g/dl (32-36); Mean Corpuscular Hemoglobin 30.8 pg (26-34); Mean Corpuscular Volume 94.7 fl (80-100); Mean Platelet Volume 10.1 fl (7.4-10.4); Platelet Count Result 178 k/mm3 (150-375); Red Blood Count 5.46 M/mm3 (4.6-6.20); Red Cell Distribution Width 13.5 % (11.5-14.5); White Blood Count 8.5 K/mm3 (4.5-10.0)
[2022-10-21 19:23] LABS: Alanine Aminotransferase 18 U/L (6-50); Albumin Level 4.5 g/dL (3.5-5.1); Alkaline Phosphatase 95 U/L (38-126); Anion Gap 3 mmol/L (8-16); Aspartate Amino Transferase 47 U/L (17-59); Bilirubin,Total 0.5 mg/dL (0.2-1.3); Blood Urea Nitrogen 18 mg/dL (9-20); Calcium 9.2 mg/dL (8.4-10.2); Carbon Dioxide 27 mmol/L (22-30); Chloride 104 mmol/L (98-107); Cholesterol 238 mg/dL (0-200); Estimated Glomerular Filt Rate > 60; Glucose 71 mg/dL (65-110); HDL Direct 62 mg/dL; Potassium 4.5 mmol/L (3.4-5.0); Sodium 134 mmol/L (137-145); Triglycerides 220 mg/dL (<150)
[2022-10-21 19:34] LABS: LDL Cholesterol Direct 134 mg/dL
== END 2022-10-21 10:16 | disposition home or self-care (01) ==
PROVIDERS: PCP Family Medicine; Visit Provider Family Medicine
DX: B35.1 Tinea unguium (principal); G89.29 Other chronic pain; L84 Corns and callosities; Z79.899 Other long term (current) drug therapy
CPT/HCPCS: 36415; 80053; 80061; 85027

== ENCOUNTER 2023-01-27 12:12 | Outpatient (CLI) | payer MEDICARE, SELFPAY ==
[2023-02-02 14:43] LABS: Amphetamines NEGATIVE ng/mL (<500); Barbiturates NEGATIVE ng/mL (<300); Benzodiazepines NEGATIVE ng/mL (<100); Cocaine Metabolite NEGATIVE ng/mL (<100); Marijuana Metabolite 2600 ng/mL (<5); Methadone Metabolite NEGATIVE ng/mL (<100); Oxidant NEGATIVE mcg/mL (<200); pH 5.5 (4.5-9.0)
== END 2023-01-27 12:13 | disposition home or self-care (01) ==
LOC: ANHBWCLAB 12:13
PROVIDERS: PCP Family Medicine; Visit Provider Family Medicine
DX: M54.10 Radiculopathy, site unspecified (principal); M54.2 Cervicalgia
CPT/HCPCS: 80299

== ENCOUNTER 2023-02-01 11:10 | Outpatient (CLI) | payer MEDICARE, SELFPAY ==
--- NOTE | ~2023-02-01 | MR_ITS ---
MRI of the cervical spine Clinical History: Cervicalgia Technique: Axial T2-weighted and gradient images, and sagittal T1-weighted, T2-weighted, and STIR yudith ges were acquired. Findings: No acute fracture seen. There is minimal grade 1 retrolisthesis at C3 over C4. There is 3 m m anterolisthesis of C4 over C5. No suspicious bone marrow signal abnormality seen. At C2-C3, there is minimal disc bulge. There is mild facet arthropathy bilaterally. No radha central canal stenosis or definite neural foraminal narrowing. At C3-C4, there is degenerative disc narrowing. Disc osteophyte complex results in mild canal stenosi s and cord compression. There is bilateral neural foraminal narrowing with bilateral facet arthropath y. At C4-C5, there is mild disc bulge. No radha spinal canal stenosis or cord compression. There is bila teral neural foraminal narrowing, left worse than right, with bilateral facet arthropathy, left worse than right. At C5-C6, there is disc osteophyte complex. No radha spinal canal stenosis or cord compression. There is bilateral neural foraminal narrowing, right worse than left. At C6-C7, there is mild disc osteophyte complex, without canal stenosis or cord compression. There is bilateral neural foraminal narrowing. No abnormal signal seen in the spinal cord. Paravertebral soft tissues are unremarkable. Impression: Moderate degenerative spondylosis, probably worst at C3-C4. Minimal grade 1 retrolisthesis of C3 over C4. 3 mm anterolisthesis of C4 over C5. Reviewed, dictated and finalized at location M. Impression: Moderate degenerative spondylosis, probably worst at C3-C4. Minimal grade 1 retrolisthesis of C3 over C4. 3 mm anterolisthesis of C4 over C5.
== END 2023-02-01 11:11 | disposition home or self-care (01) ==
PROVIDERS: PCP Family Medicine; Visit Provider Family Medicine
DX: M43.02 Spondylolysis, cervical region (principal); M54.10 Radiculopathy, site unspecified
CPT/HCPCS: 72141

== ENCOUNTER 2023-05-13 12:28 | Outpatient (CLI) | payer MEDICARE, SELFPAY ==
[2023-05-13 13:13] LABS: Ethanol < 10 mg/dL (<10)
[2023-05-13 13:14] LABS: Potassium 4.7 mmol/L (3.4-5.0)
[2023-05-17 17:09] LABS: GGT 21 U/L (3-85)
== END 2023-05-13 12:29 | disposition home or self-care (01) ==
PROVIDERS: PCP Family Medicine; Visit Provider Family Medicine
DX: F10.10 Alcohol abuse, uncomplicated (principal)
CPT/HCPCS: 36415; 80307; 82977; 84132

== ENCOUNTER 2023-08-12 12:32 | Outpatient (CLI) | payer MEDICARE, SELFPAY ==
[2023-08-12 13:01] LABS: Hematocrit 47.3 % (42.0-52.0); Hemoglobin 15.6 g/dL (14.0-18.0); Mean Corpuscular Hemoglobin 30.2 pg (26-34); Mean Corpuscular Volume 91.5 fl (80-100); Mean Platelet Volume 9.1 fl (7.4-10.4); Platelet Count Result 238 k/mm3 (150-375); Red Blood Count 5.17 M/mm3 (4.6-6.20); Red Cell Distribution Width 14.6 % (11.5-14.5); White Blood Count 9.1 K/mm3 (4.5-10.0)
[2023-08-12 13:11] LABS: Alanine Aminotransferase 12 U/L (6-50); Albumin Level 4.7 g/dL (3.5-5.1); Alkaline Phosphatase 94 U/L (38-126); Anion Gap 6 mmol/L (4-12); Aspartate Amino Transferase 19 U/L (17-59); Bilirubin,Total 0.8 mg/dL (0.2-1.3); Blood Urea Nitrogen 9 mg/dL (9-20); Calcium 9.3 mg/dL (8.4-10.2); Carbon Dioxide 25 mmol/L (22-30); Chloride 108 mmol/L (98-107); Estimated Glomerular Filt Rate > 60; Glucose 84 mg/dL (65-110); Potassium 3.7 mmol/L (3.4-5.0); Sodium 139 mmol/L (137-145)
[2023-08-12 13:42] LABS: Prostate Specific Antigen 3.8 ng/mL (< OR = 4.0)
[2023-08-13 22:58] LABS: Amphetamines NEGATIVE ng/mL (<500); Barbiturates NEGATIVE ng/mL (<300); Benzodiazepines NEGATIVE ng/mL (<100); Cocaine Metabolite NEGATIVE ng/mL (<150); Marijuana Metabolite POSITIVE ng/mL (<20); Methadone Metabolite NEGATIVE ng/mL (<100); Opiates POSITIVE ng/mL (<100); Oxidant NEGATIVE mcg/mL (<200); pH 7.3 (4.5-9.0)
== END 2023-08-12 12:33 | disposition home or self-care (01) ==
LOC: ANHLAB 12:37
PROVIDERS: PCP Family Medicine; Visit Provider Family Medicine
DX: Z12.5 Encounter for screening for malignant neoplasm of prostate (principal); B35.1 Tinea unguium; F10.10 Alcohol abuse, uncomplicated; F41.9 Anxiety disorder, unspecified; F98.8 Other specified behavioral and emotional disorders with onset usually occurring in childhood and adolescence; I10 Essential (primary) hypertension; J44.9 Chronic obstructive pulmonary disease, unspecified; J45.909 Unspecified asthma, uncomplicated; M19.90 Unspecified osteoarthritis, unspecified site; M79.643 Pain in unspecified hand; R31.29 Other microscopic hematuria; G89.29 Other chronic pain; Z87.891 Personal history of nicotine dependence
CPT/HCPCS: 36415; 80053; 80307; 84153; 85027; G0103

== ENCOUNTER 2023-10-02 14:15 | Outpatient (CLI) | payer MEDICARE, SELFPAY ==
--- NOTE | ~2023-10-02 | CT_ITS ---
EXAMINATION: CT lung screening DATE: 10/02/2023 14:37 INDICATION: Z87.891 - Personal history of nicotine dependence TECHNIQUE: Computed tomography (CT) of the chest was performed without intravenous contrast. Addition al 3D reconstructions utilizing coronal maximum intensity projection (MIP) were performed. Automated exposure control and iterative reconstruction technique were employed. The dose-length product was 13 1.17 mGy-cm. COMPARISON: 09/30/2022 FINDINGS: Unchanged 8 mm left lower lobe nodule. Small calcified right lower lobe nodule consistent with old gr anulomatous disease. No new or enlarging pulmonary nodules, pneumonia, pulmonary edema or pleural eff usion. Heart size is normal. Atherosclerotic coronary artery calcific a cyst. No pericardial effusion . Thoracic aorta is normal in caliber. No pathologically enlarged thoracic lymphadenopathy. The visua lized upper abdomen is unremarkable. Moderate thoracic spondylosis. IMPRESSION: 1. Lung-RADS category 2: Benign appearance or behavior. Continue annual screening with noncontrast lo w-dose chest CT in 12 months. Reviewed, dictated and finalized at location A. IMPRESSION: 1. Lung-RADS category 2: Benign appearance or behavior. Continue annual screeni ng with noncontrast low-dose chest CT in 12 months.
== END 2023-10-02 14:16 | disposition home or self-care (01) ==
PROVIDERS: PCP Family Medicine; Visit Provider Physician Assistant
DX: Z12.2 Encounter for screening for malignant neoplasm of respiratory organs (principal); Z87.891 Personal history of nicotine dependence
CPT/HCPCS: 71271

== ENCOUNTER 2024-05-26 09:11 | Outpatient (CLI) | payer MEDICARE, SELFPAY ==
[2024-05-26 09:39] LABS: Hematocrit 50.1 % (42.0-52.0); Hemoglobin 16.7 g/dL (14.0-18.0); Mean Corpuscular HGB Conc 33.3 g/dl (32-36); Mean Corpuscular Hemoglobin 30.5 pg (26-34); Mean Corpuscular Volume 91.6 fl (80-100); Mean Platelet Volume 9.6 fl (7.4-10.4); Platelet Count Result 248 k/mm3 (150-375); Red Blood Count 5.47 M/mm3 (4.6-6.20); Red Cell Distribution Width 13.6 % (11.5-14.5); White Blood Count 8.3 K/mm3 (4.5-10.0)
--- OUTSIDE RECORDS SUMMARY | 2024-05-26 09:48 | XMS_ITS | Continuity of Care Document ---
Author Organization [facility] Address [address] [place] [address] [place] [address] Phone Care Team Providers Care Community Board Member Name Role Phone Jose Rutledge MD Unavailable Unavailable Allergies, Adverse Reactions, Alerts Substance Reaction Status Criticality No Known Allergies Active No Inform ation Medications Medication Instructions Dosage Effective Dates (start - stop) Status Comments Norvasc 10 mg tablet take 1 tablet by or al route every day 10 MG - Active Zyban 150 mg tablet,sustained-rele ase take 1 tablet by oral route 2 times every day - Active Procedures Procedure Date PREV VISIT, EST, AGE 40-64 OFFICE/OUTPATIENT VISIT, EST OFFICE/OUTPATIENT VISIT, EST OFFICE/OUTPATIENT VISIT, EST PREV VISIT, EST, AGE 40-64 OFFICE/OUTPATIENT VISIT, EST PREV VISIT, EST, AGE 40-64 OFFICE/OUTPATIENT VISIT, EST Advance Directives Directive Yes / No Effective Date File Name No Information Encounters Encounter Description Practice Location Reason(s) For Visit Diagnoses Date Provider Providers Copied on Encounter [facility], [place], [address] [place], [place], [id number], [place] tel:[phone] [facility], [place] No Information 6 Aamir Garcia. [address] [facility] [place], [address] , [place]. tel:[phone] Referring Provider: Jose Rutledge [address] [facility] [place], [id number]. tel:[phone] PREV VISIT, EST, AGE 40-64 [facility], [place], [address], [place], [place], [address], [place] tel:[phone] [facility] Physical1 (chief complaint) Encounter for general adult medical exam w abnormal findingsEssential (primary) hypertensionChronic pain syndromeGeneralized anxiety disorder 6 Aamir Garcia. [address], [address], [place], [place], [address] , [place]. [phone] Referring Provider: Meek Salomon [address], [place], [place], [id number]. tel:[phone] OFFICE/OUTPA TIENT VISIT, EST [facility], [place], [address], [place], [place], [address], [place] tel:[phone] [facility], [place] back pain (chief complaint) Dietary surveillance and counselingLumbagoLu mbosacral spondylosis without myelopathy 4 Aamir Garcia. [address], [address], [place], [place], [address] , [place]. [phone] Referring Provider: Meek Salomon [address], [place], [place], [address]. tel:[phone] OFFICE/OUTPA TIENT VISIT, EST [facility], [place], [address], [place], [place], [address], [place] tel:[phone] [facility], [place] back pain (chief complaint) Dietary surveillance and counselingAbdominal PainFamily Hx of Cardiovascular DiseaseLumbagoSciat ica Dec-0 4 Aamir Garcia. [address], [address], [place], [place], [address] , [place]. [phone] Referring Provider: Meek Salomon [address], [place], [place], [address]. tel:[phone] PREV VISIT, EST, AGE 40-64 [facility], [place], [address], [place], [place], [address], [place] tel:[phone] [facility] Physical (chief complaint) Dietary surveillance and counselingRoutine Medical ExamAbdominal PainAsthmaOther and unspecified hyperlipidemiaRouti ne Medical Exam 4 Aamir Garcia. [address], [address], [place], [place], [address] , [place]. tel:[phone] Referring Provider: Meek Sal[address], [place], [place], [address]. tel:[phone] PREV VISIT, EST, AGE 40-64 [facility], [place], [facility] [address], [place], [place], [id number], [place] tel:[phone] [facility], [place] Physical (chief complaint) Routine Medical ExamDietary surveillance and counselingRoutine Medical Exam 3 Aamir Garcia. [address], [address], [place], [place], [address] , [place]. tel:[phone] Referring Provider: Meek Salomon [address] [facility] [address], [place], [place], [address]. tel:[phone] OFFICE/OUTPA TIENT VISIT, EST [facility], [place], [address], [place], [place], [address], [place] tel:[phone] [facility], [place] ankle pain (chief complaint) asthma (chief complaint) Dietary surveillance and counselingPain in joint involving ankle and footNondependent alcohol abuse, continuous drinking behaviorAsthma 3 Aamir Verde [address], [address], [place], [place], [address] , [place]. tel:[phone] Referring Provider: Meek Sal[address], [place], [place], [address]. tel:[phone] Family History Family Member Type Diagnosis Age At Onset Sister Problem (finding) Alive and well Father Problem (finding) Cancer, prostate 58 Mother Problem (finding) Stroke 49 Mother Problem (finding) Coronary artery disease 50 Mother Problem (finding) COPD Payers Payer name Insurance type Covered green party ID Authoriza tion(s) No Information Social History Type Description Quantity Date Captured Comments Alcohol Use Details Unknown Caffeine Use Details Unknown Tobacco Use Status Smoking Status No Information Sex Male Chief Complaint And Reason For Visit No Information Plan Of Treatment Date Type Action Status Goal Tobacco cessation counseling completed Goal Tobacco cessation counseling completed Goal Tobacco cessation counseling completed Goal Tobacco cessation counseling completed Referral Ordered: Pain Medicine (related to Chronic pain syndrome) ordered Referral Ordered: Referrals: Pain Medicine. Evaluate and treat ordered Referral Ordered: Referral: Neurosurgery. ordered Referral Ordered: Pain Management (related to Lumbago) ordered Referral Ordered: MRI LUMBAR SPINE W/O DYE ordered Referral Ordered: Referral: Pain Management. ordered Referral Ordered: CT ABDOMEN W/DYE ordered Referral Ordered: ANKLE XRAY, TWO VIEW Right ordered History Of Present Illness Encounter Date Complaint History Of Prese nt Illness Physical1 Pt needs annual physical. Pt has chronic low back pain. Pt c/o sciatica and numnbess. Pt supposes to have surgery by Dr. Ramires but he has to be nicotine free for 3 months before the surgery. Pt was getting pain medication from pain management then Dr. Ramires but Dr. Ramires no longer will prescribe pain meds for him. He is takign 180 norco per month. He just got the last script from [facility] today but he wants me to take over his pain meds. Pt was fired by pain [facility] for using cocaine. Pt told me he underwent rehab and no longer uses any illicit drugs. Pt also wants to quit smoking. Pt has depression and anxiety. Pt wants to try ambien or xanax? Pt denies any suicidal or homicidasl thought. Pt denies any crying spells. He has been doing ok with breathing. He has HTn. Pt is not on any meds. He denies any chest pain or headache Instructions Date Instruction Additional Infor twan Prescribed Activity and Exercise Education Related to Dietary Surveillance and Counseling Prescribed Diet Educ ation/Lifestyle Education Regarding Diet Related to Dietary Surveillance and Counseling Decrease caloric intake Related to Dietary surveillance counseling Dietary counseling Related to Di etary surveillance counseling Decrease caloric intake Related to Dietary surveillance counseling Dietary counseling Related to Di etary surveillance counseling Dietary counseling Related to Di etary surveillance counseling Decrease caloric intake Related to Dietary surveillance counseling Dietary counseling Related to Di etary surveillance counseling Decrease caloric intake Related to Dietary surveillance counseling Decrease caloric intake Related to Dietary surveillance counseling Dietary counseling Related to Di etary surveillance counseling Assessments Type Assessment Date No Information
--- OUTSIDE RECORDS SUMMARY | 2024-05-26 09:48 | XMS_ITS | Clinical Summary ---
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 Gender Identity Not on file Sexual Orientation Not on file Plan of Treatment Health Maintenance Due Date Last Done Comments Hepatitis C Virus (HCV) Screening 1965 TdaP Immunization 1965 Hepatitis B Immunization (1 of 3 - 19+ 3-dose series) 06/14/1986 Colonoscopy 06/14/2012 Colorectal Cancer Screening 06/14/2012 Cologuard 06/14/2017 Immunochemical Fecal Occult Blood 06/14/2017 Zoster Immunization (1 of 2) 06/14/2017 PSA Discussion 06/14/2022 Influenza Immunization (#1) 2023 08/2 07/2021, 03/30/2021, 02/04/2020 SARS-COV-2 Immunization ( season) 2023 04/22/2021, 03/30/2021 Respiratory Syncytial Virus (RSV) Immunization (Adult) (1 - 1-dose 75+ series) 06/14/2042 Pneumococcal Immunization (5 0+ years) Completed 09/17/2021, 02/04/2020 Pneumococcal Immunization Combined Discontinued 09/17/2021, 02/04/2020 Meningococcal Immunization (ACWY) Aged Out No longer eligible based on patient's age to complete this topic Rotavirus Immunization Aged Out No lo nger eligible based on patient's age to complete this topic Insurance MEDICARE C [place]ICAID [place] Care Teams Supervisor Labor Gang Relationship Specialty Start Date End Date Vlad Alejo MD [address] [place] [id number] PCP - General Family Medicine 06/17/23
[2024-05-26 09:50] LABS: Alanine Aminotransferase 16 U/L (6-50); Albumin Level 4.1 g/dL (3.5-5.1); Alkaline Phosphatase 89 U/L (38-126); Anion Gap 7 mmol/L (4-12); Aspartate Amino Transferase 22 U/L (17-59); Bilirubin,Total 0.7 mg/dL (0.2-1.3); Blood Urea Nitrogen 11 mg/dL (9-20); Calcium 8.9 mg/dL (8.4-10.2); Carbon Dioxide 28 mmol/L (22-30); Chloride 102 mmol/L (98-107); Estimated Glomerular Filt Rate > 60; Glucose 103 mg/dL (65-110); Potassium 3.9 mmol/L (3.4-5.0); Sodium 137 mmol/L (137-145)
== END 2024-05-26 09:12 | disposition home or self-care (01) ==
PROVIDERS: PCP Family Medicine; Visit Provider Family Medicine
DX: Z79.899 Other long term (current) drug therapy (principal)
CPT/HCPCS: 36415; 80053; 85027

== ENCOUNTER 2025-01-27 00:23 | Day surgery (SDC) | payer MEDICARE, SELFPAY ==
[2025-01-18 15:16] VITALS: BMI 26.6
--- OUTSIDE RECORDS SUMMARY | 2025-01-27 00:25 | XMS_ITS | Clinical Summary ---
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 Gender Identity Not on file Sexual Orientation Not on file Plan of Treatment Health Maintenance Due Date Last Done Comments Hepatitis C Virus (HCV) Screening 1965 TdaP Immunization 1965 Hepatitis B Immunization (1 of 3 - 19+ 3-dose series) 06/14/1986 Cologuard 06/14/2012 Colonoscopy 06/14/2012 Colorectal Cancer Screening 06/14/2012 Immunochemical Fecal Occult Blood 06/14/2012 Zoster Immunization (1 of 2) 06/14/2017 Medicare Initial AWV [id number] 04/14/2021 PSA Discussion 06/14/2022 Influenza Immunization (#1) 2024 08/2 07/2021, 03/30/2021, 02/04/2020 SARS-COV-2 Immunization ( - 2024- season) 2024 04/22/2021, 03/30/2021 Respiratory Syncytial Virus (RSV) Immunization (Adult) (1 - 1-dose 75+ series) 06/14/2042 Pneumococcal Immunization (5 0+ years) Completed 09/17/2021, 02/04/2020 Pneumococcal Immunization Combined Discontinued 09/17/2021, 02/04/2020 Human Papillomavirus (HPV) Immunization Aged Out No longer eligible based on patient's age to complete this topic Meningococcal Immunization (ACWY) Aged Out No longer eligible based on patient's age to complete this topic Rotavirus Immunization Aged Out No lo nger eligible based on patient's age to complete this topic Insurance MEDICARE C [place] Care Teams Insurance Coordinator Relationship Specialty Start Date End Date Vlad Alejo MD PCP - General Family Medicine 06/17/23
--- OUTSIDE RECORDS SUMMARY | 2025-01-27 00:25 | XMS_ITS ---
Author Organization [facility] Address [address] [place] [address] Phone Care Team Providers Care Crossing Flagman Name Role Phone Vlad Alejo MD Primary Care Provider [phone] [facility] Service Episode Status:Identified (Enrolling) Start date:01/20/2025 Related program episode:[facility] (Active) Continued Care and Services Coordination
--- OUTSIDE RECORDS SUMMARY | 2025-01-27 00:25 | XMS_ITS ---
Author Organization [facility] Address [address] [place] [address] Phone Care Team Providers Care Finishing Supervisor Plastic Sheets Name Role Phone Vlad Alejo MD Primary Care Provider [phone] [facility] Status:Enrolled (Active) Start date:01/20/2025 Enrollment date:01/20/2025 Related social drivers of health:Intimate Partner Violence, Social Connections, Alcohol Use, Tobacco Use, Financial Resource Strain,Depression, Stress, Physical Activity, Food Insecurity, Transportation Needs, Housing Stability, Utilities Related service episodes:[facility] Service Episode (Enrolling) Continued Care and Services Coordination
[2025-01-27 07:53] VITALS: BP 136/98; PULSE 72; RESP 19; TEMP 36.2; O2SAT 99; BMI 26.0
[2025-01-27] MEDS: LACTATED RINGERS 1,000 ML 150 ML IV CONT (08:06)
--- NOTE | 2025-01-27 08:49 | P.PNAN_ITS ---
Anes - Initial Pre Proc Eval Procedure: Operation Date: 01/27/25 09:30 Proposed Procedures p Esophagogastroduodenoscopy EGD - Eladio Gomez MD Date/Time: 01/27/25 08:49 Surgeon: Eladio Gomez MD Pre Op Diagnosis: gastroenteritis and colitis Patient Data Age: 59 Gender: M Height: 1.75 m Weight: 80.1 kg Last Vital Signs Temp 97.1 F L 01/27/25 07:53 Pulse 72 01/27/25 07:53 Resp 19 01/27/25 07:53 BP 136/98 H 01/27/25 07:53 Pulse Ox 99 01/27/25 07:53 O2 Del Method Room Air 01/27/25 07:53 Allergies Allergy/AdvReac Type Severity Reaction Status Date / Time No Known Allergies Allergy Mild Verified 01/18/25 15:14 Home Medications ?Medication ?Instructions ?Recorded ?Confirmed ?Type bupropion HCl 150 mg 24 hr tablet, See Rx Instructions .Route 10/10/23 01/27/25 Rx extended release .COMPLEX #90 tabs budesonide 160 mcg-glycopyr 9 2 inh inhalation BID #32 .1 grams 05/14/24 01/27/25 Rx mcg-formot 4.8 mcg/actuation HFA inhaler (Breztri Aerosphere) zolpidem 10 mg tablet (Ambien) 10 mg PO .hs PRN insomn ia #30 tabs 08/25/24 01/18/25 Rx duloxetine 30 mg capsule,delayed See Rx Instructions . Route 09/13/24 01/27/25 Rx release .COMPLEX #180 caps trazodone 50 mg tablet See Rx Instructions .Route 0 11/16/24 01/18/25 Rx .COMPLEX #90 tabs hydrocodone 7.5 mg-acetaminophen 1 tablet PO Q6H PRN P ain #120 tabs 01/17/25 01/27/25 Rx 325 mg tablet Patient hx anesthesia problems: none Family hx anesthesia problems: none Results Review: All pre-operative results and documents have been reviewed as part of the pre- operative evaluation. [facility] Past Medical History Medical History Left hip pain Degenerative joint disease of cervical and lumbar spine STEPHANIE positive Inflammatory arthritis Encounter for postoperative care Hemorrhoids Sleep disorder Urinary hesitancy Urinary frequency Wheezing SOB (shortness of breath) on exertion Dizziness Claustrophobia Degenerative arthritis of right knee Perforated sigmoid colon Arthritis Hypertension Hernia Anxiety H/O migraine Depression COPD (chronic obstructive pulmonary disease) Asthma Surgical History Surgical History History of tonsillectomy History of intestinal surgery H/O knee surgery H/O shoulder surgery Family History Family History Mother Acute myocardial infarction Family history of chronic obstructive pulmonary disease Father Malignant neoplasm of prostate Other Arthritis Asthma Depression HLD (hyperlipidemia) Heart disease Hypertension Social History Social History Smoking packs per day: 0.5 Smoking cigarettes per day: 10.0 Years smoked: 45 Smoking pack-years: 22.50 Smoking status: Current every day smoker Tobacco type: cigarettes Additional smoking assessment comments: 1/2 PACK/DAY RECENTLY-TRYING TO QUIT Alcohol intake: current Drinks per week: 21 Alcohol use details: 1/2-full fifth bourbon daily Substance use: former Substance use type: crack/cocaine and opiates Other substance usage details: Marijuana 2-3x day, hx of recreational drugs Last use: opiates for pain control Lack of Transportation: YES Lack of Food: Sometimes True Current Housing: I Have Housing Concerned About Future Housing: No Difficulty Paying Gas/Electric Bills: No Difficulty Paying for Meds: No Currently Unemployed: No Education: Associate Degree Difficulty w/ Childcare or Family Care: No Living arrangements: with family Occupation/Education: unemployed Additional occupation/education comments: disabled Gender identity (if verbalized by the patient): Male Spiritual care concerns: No Anes - Eval Final PreProcedure Day of Procedure 01/27/25 08:49 Patient weight: normal Heart: regular rate and rhythm Lungs: clear to auscultation Airway: Mallampati scale class II Neurological: alert and oriented Last oral intake: >/= 8 hours ASA classification: III Emergent: no Anesthetic plan: proceed Anesthesia type and monitoring: general GIVS and standard monitoring Results Review: All pre-operative results and documents have been reviewed as part of the pre- operative evaluation. Informed Consent: The patient's anesthetic plan and its attendant risks and benefits were discussed with the patient/family/POA. Questions were solicited and answers provided to the satisfaction of the patient/family/POA.
--- NOTE | 2025-01-27 09:15 | P.HP_ITS ---
H&P: HPI History of Present Illness Date/Time: 01/27/25 09:15 Chief Complaint: Dysphagia Narrative: The patient started having intermittent dysphagia episodes to solids and liquids about 2 years ago. This has been worsening over the past 6 months, to the point that almost every time he eats or drinks experiences difficulty swallowing. Noticeably, he brings up significant amounts of ?slime?. There is no heartburn, chest pain or unintentional weight loss. He is referred for an EGD. Review of Systems Review of Systems: All systems reviewed & are unremarkable except as noted in HPI and below PMFSH Past Medical History Medical History Left hip pain Degenerative joint disease of cervical and lumbar spine STEPHANIE positive Inflammatory arthritis Encounter for postoperative care Hemorrhoids Sleep disorder Urinary hesitancy Urinary frequency Wheezing SOB (shortness of breath) on exertion Dizziness Claustrophobia Degenerative arthritis of right knee Perforated sigmoid colon Arthritis Hypertension Hernia Anxiety H/O migraine Depression COPD (chronic obstructive pulmonary disease) Asthma Surgical History Surgical History History of tonsillectomy History of intestinal surgery H/O knee surgery H/O shoulder surgery Family History Family History Mother Acute myocardial infarction Family history of chronic obstructive pulmonary disease Father Malignant neoplasm of prostate Other Arthritis Asthma Depression HLD (hyperlipidemia) Heart disease Hypertension Social History Social History Smoking packs per day: 0.5 Smoking cigarettes per day: 10.0 Years smoked: 45 Smoking pack-years: 22.50 Smoking status: Current every day smoker Tobacco type: cigarettes Additional smoking assessment comments: 1/2 PACK/DAY RECENTLY-TRYING TO QUIT Alcohol intake: current Drinks per week: 21 Alcohol use details: 1/2-full fifth bourbon daily Substance use: former Substance use type: crack/cocaine and opiates Other substance usage details: Marijuana 2-3x day, hx of recreational drugs Last use: opiates for pain control Lack of Transportation: YES Lack of Food: Sometimes True Current Housing: I Have Housing Concerned About Future Housing: No Difficulty Paying Gas/Electric Bills: No Difficulty Paying for Meds: No Currently Unemployed: No Education: Associate Degree Difficulty w/ Childcare or Family Care: No Living arrangements: with family Occupation/Education: unemployed Additional occupation/education comments: disabled Gender identity (if verbalized by the patient): Male Spiritual care concerns: No Meds Home Medications and Allergies Home Medications ?Medication ?Instructions ?Recorded ?Confirmed ?Type bupropion HCl 150 mg 24 hr tablet, See Rx Instructions .Route 10/10/23 01/27/25 Rx extended release .COMPLEX #90 tabs budesonide 160 mcg-glycopyr 9 2 inh inhalation BID #32 .1 grams 05/14/24 01/27/25 Rx mcg-formot 4.8 mcg/actuation HFA inhaler (Breztri Aerosphere) zolpidem 10 mg tablet (Ambien) 10 mg PO .hs PRN insomn ia #30 tabs 08/25/24 01/18/25 Rx duloxetine 30 mg capsule,delayed See Rx Instructions . Route 09/13/24 01/27/25 Rx release .COMPLEX #180 caps trazodone 50 mg tablet See Rx Instructions .Route 0 11/16/24 01/18/25 Rx .COMPLEX #90 tabs hydrocodone 7.5 mg-acetaminophen 1 tablet PO Q6H PRN P ain #120 tabs 01/17/25 01/27/25 Rx 325 mg tablet Allergies Allergy/AdvReac Type Severity Reaction Status Date / Time No Known Allergies Allergy Mild Verified 01/18/25 15:14 Vital Signs Vital Signs - 24 hr 01/27/25 07:53 Temperature 97.1 F L Pulse Rate 72 Respiratory Rate 19 Blood Pressure 136/98 H Pulse Oximetry 99 Oxygen Delivery Room Air Exam Const: General: cooperative and healthy appearing Resp: Effort & Inspection: normal respiratory effort and able to speak in complete sentences Auscultation: clear to auscultation bilaterally Cardio: Rate: regular rate Rhythm: regular rhythm GI: Inspection: normal to inspection GI Palp: No No hepatosplenomegaly present Auscultation: normal bowel sounds Rectal Exam: deferred Skin: General skin exam: normal color Psych: Appearance: grossly normal Mental Status: mental status grossly normal Assessment and Plan Assessment and plan (1) Dysphagia: Code(s): R13.10 - Dysphagia, unspecified Status: Acute Assessment and Plan: The patient is deemed a good candidate for the procedure. Consent signed. Will proceed.
[2025-01-27] MEDS: BENZOCAINE (*SP) 60 ML SPRAY CAN (HURRICAINE) 1 SPRAY MUCOUS MEM (09:19)
--- NOTE | 2025-01-27 09:28 | S_PTH ---
PATIENT: Shubham Guardado Jr. LOC: [facility] U#:[id number] AGE/SX: 59/M ROOM: RE01/27/[address]: Eladio Gomez MD : [id number] BED: DIS: 01/27/2025 SPEC #: [id number] RECD: 01/27/25 11:12 STATUS: NOHEMI REQ #: [id number] RAGHU: 01/27/25 09:[address]: Eladio Gomez DEPT: [facility] Surgical RECD BY: Gemma Wiggins ENTERED: 01/27/25 11:13 SP TYPE: Surgical OTHR DR: Vlad Alejo MD Tissues: A - Gastric Biopsy B - Gastric Biopsy C - Esophageal Biopsy Procedures: [place] Stain Hematoxylin and Eosin Stain Gross and Microscopic Level 4
[2025-01-27 09:35] VITALS: BP 185/102; PULSE 80; RESP 25; O2SAT 99
[2025-01-27 09:45] VITALS: BP 134/89; PULSE 75; RESP 22; O2SAT 99
[2025-01-27 09:51] VITALS: BP 130/84; PULSE 71; RESP 26; O2SAT 99
== END 2025-01-27 09:56 | disposition home or self-care (01) ==
PROVIDERS: PCP Family Medicine; Referring Provider Family Medicine; Visit Provider Internal Medicine Gastroenterology
PROC: 0DJ08ZZ Inspection of Upper Intestinal Tract, Via Natural or Artificial Opening Endoscopic (ICD-10-PCS; CPT 43239; principal; 2025-01-27 09:30)
DX: K21.00 Gastro-esophageal reflux disease with esophagitis, without bleeding (principal); K22.2 Esophageal obstruction; K29.80 Duodenitis without bleeding; K44.9 Diaphragmatic hernia without obstruction or gangrene; I10 Essential (primary) hypertension; J44.9 Chronic obstructive pulmonary disease, unspecified; R39.11 Hesitancy of micturition; R35.0 Frequency of micturition; F40.240 Claustrophobia; M17.11 Unilateral primary osteoarthritis, right knee; F41.9 Anxiety disorder, unspecified; F32.A Depression, unspecified; M06.4 Inflammatory polyarthropathy; G47.9 Sleep disorder, unspecified; M47.896 Other spondylosis, lumbar region; M47.892 Other spondylosis, cervical region; F12.90 Cannabis use, unspecified, uncomplicated; F17.210 Nicotine dependence, cigarettes, uncomplicated; Z79.51 Long term (current) use of inhaled steroids; Z79.891 Long term (current) use of opiate analgesic; Z98.890 Other specified postprocedural states; Z80.42 Family history of malignant neoplasm of prostate; Z82.49 Family history of ischemic heart disease and other diseases of the circulatory system
CPT/HCPCS: 43239; 43249; 88305; 88312; C1726; J2003; J2704; J7120